=== PATIENT | female | born 1960 | race Caucasian/White ===

== ENCOUNTER 2017-07-05 04:27 | Emergency (ER) | payer MEDICARE, MEDICAID ==
[2017-07-05] MEDS ORDERED: Sodium Chloride 0.9% 10 ML Syringe FLUSH PRN (04:53)
[2017-07-05] MEDS ORDERED: Ondansetron 4 MG/2 ML SDV IVPUSH ONE (04:53)
[2017-07-05] MEDS ORDERED: HYDROmorphone 1 MG/ML Syringe IVPUSH ONE (04:54)
[2017-07-05] MEDS ORDERED: Ketorolac 30 MG/ML SDV IVPUSH ONE (04:55)
[2017-07-05] MEDS ORDERED: Sodium Chloride 0.9% 1,000 ML IV SCH (05:00)
--- NOTE | 2017-07-05 05:01 | EDM.PDOC ---
ED HPI GENERAL MEDICAL PROBLEM - General Chief Complaint: Abdominal Pain Stated Complaint: NAUSEA VOMITING SIDE PAIN Time Seen by Provider: 07/05/17 04:48 Source of Information: Reports: Patient History Limitations: Reports: No Limitations - History of Present Illness INITIAL COMMENTS - FREE TEXT/NARRATIVE: The patient presents with left flank and left abdominal pain. This started a few days ago. She has nausea and vomiting. She has no dysuria or hematuria. She denies fever, chills, cough, chest pain, shortness of breath and diarrhea. She never had a kidney stone before. She noticed her urine is dark. She still has her gallbladder and appendix but she did have gastric by pass surgery. The pain does come and goes but it is stronger lately. Onset: Gradual Duration: Day(s): (2) Location: Reports: Abdomen, Back (left flank) Quality: Reports: Sharp Severity: Severe Improves with: Reports: None Worsens with: Reports: None Associated Symptoms: Reports: Nausea/Vomiting. Denies: Chest Pain, Cough, Fever /Chills, Headaches, Shortness of Breath Left Middle Abdominal Pain Score (Numeric/FACES): 10 - Related Data Allergies Allergy/AdvReac Type Severity Reaction Status Date / Time prednisone Allergy Itching Verified 07/05/17 04:38 Home Meds: Home Meds ALPRAZolam [Xanax] 0.25 mg PO BID 06/28/16 [History] Cetirizine [ZyrTEC] 10 mg PO DAILY 06/28/16 [History] DULoxetine [Cymbalta] 120 mg PO DAILY 06/28/16 [History] Folic Acid 1 mg PO DAILY 06/28/16 [History] Multivitamin [Multivitamins] 1 cap PO DAILY 06/28/16 [History] QUEtiapine [SEROquel] 100 mg PO BEDTIME 06/28/16 [History] Rosuvastatin [Crestor] 5 mg PO DAILY 06/28/16 [History] Tamsulosin HCl [Flomax] 0.4 mg PO DAILY #10 cap.er.24h 07/05/17 [Rx] oxyCODONE HCl/Acetaminophen [Percocet 5-325 mg Tablet] 1 - 2 each PO Q6HR PRN # 20 tablet 07/05/17 [Rx] Past Medical History Cardiovascular History: Reports: High Cholesterol, Hypertension 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: , Other (See Below) Other OB/BYN History: ovarian cyst Psychiatric History: Reports: Anxiety, Depression - Past Surgical History HEENT Surgical History: Reports: Tonsillectomy GI Surgical History: Reports: Bariatric Procedure, Other (See Below) Female Surgical History: Reports: Section, Hysterectomy Musculoskeletal Surgical History: Reports: Arthroscopic Knee, Carpal Tunnel Social & Family History - Tobacco Use Smoking Status *Q: Current Every Day Smoker Years of Tobacco use: 30 Packs/Tins Daily: 0.5 Second Hand Smoke Exposure: Yes - Alcohol Use Days Per Week of Alcohol Use: 0 Number of Drinks Per Day: 0 Total Drinks Per Week: 0 - Recreational Drug Use Recreational Drug Use: No Drug Use in Last 12 Months: No ED ROS GENERAL - Review of Systems Review Of Systems: See Below Constitutional: Reports: No Symptoms HEENT: Reports: No Symptoms Respiratory: Reports: No Symptoms Cardiovascular: Reports: No Symptoms Endocrine: Reports: No Symptoms GI/Abdominal: Reports: Abdominal Pain, Nausea, Vomiting : Reports: Flank Pain Musculoskeletal: Reports: No Symptoms ED EXAM, GI/ABD - Physical Exam Exam: See Below Exam Limited By: No Limitations General Appearance: Alert, No Apparent Distress Ears: Normal External Exam Nose: Normal Inspection Head: Atraumatic, Normocephalic Neck: Normal Inspection Respiratory/Chest: No Respiratory Distress, Lungs Clear, Normal Breath Sounds Cardiovascular: Regular Rate, Rhythm, No Edema, No Murmur GI/Abdominal Exam: Soft, No Organomegaly, No Mass, Tender (Left abdomen) Back Exam: CVA Tenderness (L) (Mild) Extremities: Normal Inspection Neurological: Alert, Oriented, No Motor/Sensory Deficits Skin Exam: Warm, Dry Course - Vital Signs Last Recorded V/S: Last Vital Signs Temp 98.1 F 07/05/17 04:36 Pulse 97 07/05/17 04:36 Resp 16 07/05/17 04:36 BP 157/99 H 07/05/17 04:36 Pulse Ox 95 07/05/17 04:36 - Orders/Labs/Meds Orders: Active Orders 24 hr Category Date Time Status Peripheral IV Care [RC] . DIRECTED Care 07/05/17 04:54 Active Abdomen Ltd [US] Stat Exams 07/05/17 06:32 Taken Abdomen Pelvis wo Cont [CT] Stat Exams 07/05/17 04:53 Taken Sodium Chloride 0.9% [Normal Saline] 1,000 ml Med 07/05/17 05:00 Active IV ASDIRECTED Sodium Chloride 0.9% [Saline Flush] Med 07/05/17 04:53 Active 10 ml FLUSH ASDIRECTED PRN ED Antiemetic Medication Reflex [OM.PC] Stat Ot 07/05/17 04:53 Ordered Peripheral IV Insertion Adult [OM.PC] Stat Ot 07/05/17 04:53 Ordered Medication Orders Sodium Chloride (Normal Saline) 1,000 mls @ 125 mls/hr IV ASDIRECTED IQRA Last Admin: 07/05/17 05:08 Dose: 125 mls/hr Sodium Chloride (Saline Flush) 10 ml FLUSH ASDIRECTED PRN PRN Reason: Keep Vein Open Last Admin: 07/05/17 05:02 Dose: 10 ml Labs: Laboratory Tests 07/05/17 07/05/17 07/05/17 Range/Units 04:45 04:50 04:55 WBC 9.98 (3.98-10.04) K/mm3 RBC 4.94 (3.98-5.22) M/mm3 Hgb 14.8 (11.2-15.7) gm/L Hct 43.4 (34.1-44.9) % MCV 87.9 (79.4-94.8) fl MCH 30.0 (25.6-32.2) pg MCHC 34.1 (32.2-35.5) g/dl RDW Std Deviation 43.6 (36.4-46.3) fL Plt Count 255 (182-369) K/mm3 MPV 10.3 (9.4-12.3) fl Neut % (Auto) 79.4 H (34.0-71.1) % Lymph % (Auto) 12.9 L (19.3-51.7) % [place] % (Auto) 7.0 (4.7-12.5) % Eos % (Auto) 0.3 L (0.7-5.8) Baso % (Auto) 0.2 (0.1-1.2) % Neut # (Auto) 7.92 H (1.56-6.13) K/mm3 Lymph # (Auto) 1.29 (1.18-3.74) K/mm3 [place] # (Auto) 0.70 H (0.24-0.36) K/mm3 Eos # (Auto) 0.03 L (0.04-0.36) K/mm3 Baso # (Auto) 0.02 (0.01-0.08) K/mm3 Sodium 135 L (136-145) mEq/L Potassium 3.8 (3.5-5.1) mEq/L Chloride 99 (98-107) mEq/L Carbon Dioxide 28 (21-32) mEq/L Anion Gap 11.8 (5-15) BUN 9 (7-18) mg/dL Creatinine 0.8 (0.55-1.02) mg/dL Est Cr Clr Drug Dosing 62.84 mL/min Estimated GFR (MDRD) > 60 (>60) mL/min BUN/Creatinine Ratio 11.3 L (14-18) Glucose 148 H (74-106) mg/dL Calcium 8.8 (8.5-10.1) mg/dL Total Bilirubin 0.2 (0.2-1.0) mg/dL AST 18 (15-37) U/L ALT 21 (14-59) U/L Alkaline Phosphatase 82 (46-116) U/L Total Protein 7.3 (6.4-8.2) g/dl Albumin 4.1 (3.4-5.0) g/dl Globulin 3.2 gm/dL Albumin/Globulin Ratio 1.3 (1-2) Lipase 182 (73-393) U/L Urine Color Yellow (Yellow) Urine Appearance Slt cloudy H (Clear) Urine pH 7.0 (5.0-8.0) Ur Specific [place] 1.025 (1.005-1.030) Urine Protein Trace H (Negative) Urine Glucose (UA) Negative (Negative) Urine Ketones Negative (Negative) Urine Occult Blood 3+ H (Negative) Urine Nitrite Negative (Negative) Urine Bilirubin Negative (Negative) Urine Urobilinogen 0.2 (0.2-1.0) Ur Leukocyte Esterase Negative (Negative) Urine RBC >100 H (0-5) /hpf Urine WBC 0-5 (0-5) /hpf Ur Epithelial Cells 5-10 H (0-5) /hpf Urine Bacteria Few (FEW) /hpf Urine Mucus Not seen (FEW) /hpf Meds: Medications Generic Name Dose Route Start Last Admin Trade Name Freq PRN Reason Stop Dose Admin Sodium Chloride 1,000 mls @ 125 mls/hr 07/05/17 05:00 07/05/17 05:08 Normal Saline IV 125 mls/hr ASDIRECTED IQRA Administration Sodium Chloride 10 ml 07/05/17 04:53 07/05/17 05:02 Saline Flush FLUSH 10 ml ASDIRECTED PRN Administration Keep Vein Open Discontinued Medications Generic Name Dose Route Start Last Admin Trade Name Ally PRN Reason Stop Dose Admin Hydromorphone HCl 1 mg 07/05/17 04:54 07/05/17 05:06 Dilaudid IVPUSH 07/05/17 04:55 1 mg ONETIME ONE Administration Ketorolac Tromethamine 30 mg 07/05/17 04:55 07/05/17 05:04 Toradol IVPUSH 07/05/17 04:56 30 mg ONETIME ONE Administration Ondansetron HCl 4 mg 07/05/17 04:53 07/05/17 05:02 Zofran IVPUSH 07/05/17 04:54 4 mg ONETIME ONE Administration - Re-Assessments/Exams Free Text/Narrative Re-Assessment/Exam: 07/05/17 05:00 I ordered an IV NS at 125mL.hr, dilaudid 1mg IV, toradol 30mg IV, zofran 4mg IV , labs, UA and a CT of her abdomen and pelvis to look for a kidney stone. 07/05/17 06:29 Her CBC looks good. Her Na was low at 135. Her glucose was 148. Her UA showed blood. Her CT shows status post gastric bypass. Hydronephrosis of the left kidney secondary to a 1cm stone in the proximal left ureter, 2cm nonobstructing stone lower pole left kidney, cholilithiasis, 5.5cm mass in the right lobe of the liver posteriorly. Correlation with ultrasound is suggested to document that this is a hemangioma. 07/05/17 07:14 I have ordered an US of her liver. 07/05/17 07:23 I called [facility] and I was able to get the patient in to see Dr Garcia on SundayJuly 10 at 11am [place] time. 07/05/17 08:30 The US 5.6 abnormality within the posterior right lobe of the liver correlating to area of diminished density on recent CT exam. This does not appear as a typical hemangioma. Nuclear medicine RBC SPECT study is recommended. Small echogenic abnormality within the left lobe of the liver is felt compatible with small hemangioma. Gallstones or possibly sludge ball within gallbladder. No gallbladder wall thickening or biliary duct dilatation. I will order the RBC SPECT scan and I will call Toña Theodore her provider to let her know what is going on. I will continue the plan for the urology appointment. Departure - Departure Time of Disposition: 08:40 Disposition: Home, Self-Care 01 Condition: Good Clinical Impression: Kidney stone on left side, Ureteral colic, Ureteral calculus, left, Liver lesion - Discharge Information Prescriptions: oxyCODONE HCl/Acetaminophen [Percocet 5-325 mg Tablet] 1 - 2 each PO Q6HR PRN # 20 tablet PRN Reason: Pain Tamsulosin HCl [Flomax] 0.4 mg PO DAILY #10 cap.er.24h Referrals: Toña Theodore NP [Primary Care Provider] - Mckay Garcia MD [Physician] - Forms: ED Department Discharge Additional Instructions: Take the percocet 1 to 2 pills every 6 hours as needed for pain. Take the flomax daily. Follow up with Dr Garcia on SundayJuly 10 at 11am [place] time. Please check in at 10:30 am to fill out the paper work. Please return if you are worse. There was a lesion seen on your CT scan. I have ordered an additional test to figure out what this is. The test is ordered for Sunday the 13 of July at 10am here in the hospital. 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 - My Orders Last 24 Hours: My Active Orders 07/05/17 04:53 Abdomen Pelvis wo Cont [CT] Stat Sodium Chloride 0.9% [Saline Flush] 10 ml FLUSH ASDIRECTED PRN ED Antiemetic Medication Reflex [OM.PC] Stat Peripheral IV Insertion Adult [OM.PC] Stat 07/05/17 04:54 Peripheral IV Care [RC] . DIRECTED 07/05/17 05:00 Sodium Chloride 0.9% [Normal Saline] 1,000 ml IV ASDIRECTED 07/05/17 06:32 Abdomen Ltd [US] Stat - Assessment/Plan Last 24 Hours: My Active Orders 07/05/17 04:53 Abdomen Pelvis wo Cont [CT] Stat Sodium Chloride 0.9% [Saline Flush] 10 ml FLUSH ASDIRECTED PRN ED Antiemetic Medication Reflex [OM.PC] Stat Peripheral IV Insertion Adult [OM.PC] Stat 07/05/17 04:54 Peripheral IV Care [RC] . DIRECTED 07/05/17 05:00 Sodium Chloride 0.9% [Normal Saline] 1,000 ml IV ASDIRECTED 07/05/17 06:32 Abdomen Ltd [US] Stat
--- NOTE | 2017-07-05 09:28 | US ---
Limited abdominal ultrasound: Multiple real-time images of the upper right abdomen were obtained. Comparison: Previous CT exam performed earlier on the same day (05:29 AM). Slight heterogeneous area is seen within the right posterior liver which is felt to correlate to the area of diminished density on CT exam. This does not have the appearance of a typical hemangioma and measures about 5.5 cm. Small hyperechoic area is noted within the left lobe of the liver measuring 1.4 cm in size possibly due to small hemangioma. No additional abnormality is appreciated within the liver. Right kidney shows no hydronephrosis. Small hyperechoic area is noted within the mid right kidney most likely vascular in etiology. Pancreas appears within normal limits. Single mobile gallstone or possibly sludge ball is seen within the gallbladder measuring 6 mm. No gallbladder wall thickening or biliary duct dilatation is seen. Impression: 1. 5.6 cm abnormality within the posterior right lobe of the liver correlating to area of diminished density on recent CT exam. This does not appear as a typical hemangioma. Nuclear medicine RBC SPECT study is recommended to further evaluate. 2. Small echogenic abnormality within the left lobe of the liver is felt compatible with small hemangioma. 3. Gallstone or possibly sludge ball within the gallbladder. No gallbladder wall thickening or biliary duct dilatation. 4. Minimal finding within the right kidney felt to be incidental. Diagnostic code #9
[2017-07-05 09:32] VITALS: BP 130/68
--- NOTE | 2017-07-06 08:17 | CT ---
CT abdomen and pelvis Technique: Multiple axial sections were obtained from above the dome of the diaphragm inferiorly through the pubic symphysis. Intravenous and oral contrast not utilized. Study has been performed as a ureteral stone protocol. Findings: 1.2 cm nonobstructing calculus noted within the left kidney. Left kidney appears swollen due to an obstructing stone located slightly past the UPJ within the proximal left ureter measuring approximately 9 mm. No other abnormal calcifications are seen along the course of the ureters. Visualized lung bases are clear. Liver shows a large low density lesion posteriorly within the right lobe measuring approximate 5.4 cm in size. No additional abnormality identified within the liver. Spleen appears normal. Adrenal glands show no nodule. Previous stomach surgery is present. Gallbladder shows a small calcified gallstone. Aorta shows atherosclerotic calcification without aneurysmal dilatation. No retroperitoneal adenopathy or mesenteric abnormalities are noted. No pelvic mass or adenopathy is identified. Bone window settings show scattered degenerative change within the spine. Disc protrusion seen into the superior endplate of L1. Impression: 1. Obstructing calculus within the proximal left ureter slightly past the UPJ measuring about 9 mm. This causes swelling of the left kidney. Left kidney also shows a nonobstructing stone. 2. 5.4 cm low-density mass within the right lobe of the liver. Please see ultrasound report for further recommendations. 3. Other incidental findings as described above. Diagnostic code #3 Agree with preliminary report issued by [employer] ([employer] preliminary report dictated on 07/05/17, 6:45 AM Central Time)
== END 2017-07-05 09:32 | disposition home or self-care (01) ==
LOC: JD.ED 04:27
DX: N20.2 Calculus of kidney with calculus of ureter (principal); K76.9 Liver disease, unspecified; F41.9 Anxiety disorder, unspecified; F32.9 Major depressive disorder, single episode, unspecified; I10 Essential (primary) hypertension; E78.00 Pure hypercholesterolemia, unspecified; F17.210 Nicotine dependence, cigarettes, uncomplicated; Z79.899 Other long term (current) drug therapy; Z98.84 Bariatric surgery status; Z98.890 Other specified postprocedural states; Z88.8 Allergy status to other drugs, medicaments and biological substances; Z90.710 Acquired absence of both cervix and uterus
CPT/HCPCS: 36415; 74176; 76705; 80053; 81001; 83690; 85025; 96361; 96374; 96375; 99284; J1170; J1885; J2405; J7040; J7050

== ENCOUNTER 2017-09-28 06:56 | Day surgery (SDC) | payer MEDICARE, MEDICAID ==
[2017-09-28] MEDS ORDERED: Sodium Chloride 0.9% 10 ML Syringe FLUSH PRN (07:00)
[2017-09-28] MEDS ORDERED: Lidocaine 1%/Sod Bicarbonate in NS 8.4% 1 ML Syringe IV PRN (07:00)
[2017-09-28] MEDS ORDERED: Rocuronium 50 MG/5 ML Vial ONE (07:13)
[2017-09-28] MEDS ORDERED: Dexamethasone 4 MG/ML 5 ML MDV ONE (07:13)
[2017-09-28] MEDS ORDERED: Ondansetron 4 MG/2 ML SDV ONE (07:13)
[2017-09-28] MEDS ORDERED: ceFAZolin 1 GM Vial ONE (07:13)
[2017-09-28] MEDS ORDERED: Propofol 200 MG/20 ML SDV ONE (07:14)
[2017-09-28] MEDS ORDERED: fentaNYL 250 MCG/5 ML SDV ONE (07:14)
[2017-09-28] MEDS ORDERED: Midazolam 1 MG/ML 2 ML SDV ONE (07:14)
[2017-09-28] MEDS ORDERED: Bupivacaine 0.5%/EPINEPHrine 1:200,000 50 ML MDV ONE (07:16)
[2017-09-28] MEDS ORDERED: Lidocaine 1% with EPINEPHrine 1:100,000 20 ML MDV ONE (07:16)
[2017-09-28] MEDS: Lactated Ringers 1,000 ML IV SCH ×2 (07:20→11:35)
--- NOTE | 2017-09-28 07:23 | PCM.PREANE ---
Preanesthetic Assessment - Anesthesia/Transfusion/Family Hx Anesthesia History: Prior Anesthesia Without Reaction Family History of Anesthesia Reaction: No Transfusion History: No Prior Transfusion(s) - Review of Systems General: No Symptoms Pulmonary: Other (smoker 1-2 packs per day, denies sob or wheezing) Cardiovascular: No Symptoms (HTN, EKG is sinus rhythm with PACs), Other ( increased lipids) Gastrointestinal: Other (GERD) Other: Reports: Diabetes (type 2), Liver Problems (liver hemagioma), Depression , Anxiety - Physical Assessment NPO Status Date: 09/27/17 NPO Status Time: 22:00 Pulse: 100 O2 Sat by Pulse Oximetry: 92 Respiratory Rate: 16 Blood Pressure: 115/76 Temperature: 37.1 C Weight: 78 kg ASA Class: 3 Mental Status: Alert & Oriented x3 Airway Class: Mallampati = 2 Dentition: Reports: Normal Dentition Thyro-Mental Finger Breadths: 3 Mouth Opening Finger Breadths: 3 ROM/Head Extension: Full Lungs: Clear to Auscultation, Normal Respiratory Effort Cardiovascular: Regular Rate, Regular Rhythm - Allergies Allergies/Adverse Reactions: Allergies Allergy/AdvReac Type Severity Reaction Status Date / Time mold Allergy Cannot Verified 09/26/17 16:05 Remember prednisone Allergy Itching Verified 09/26/17 16:05 - Blood Blood Available: No Product(s) Available: None - Anesthesia Plan Pre-Op Medication Ordered: None - Acknowledgements Anesthesia Type Planned: General Anesthesia Pt an Appropriate Candidate for the Planned Anesthesia: Yes Alternatives and Risks of Anesthesia Discussed w Pt/Guardian: Yes Pt/Guardian Understands and Agrees with Anesthesia Plan: Yes PreAnesthesia Questionnaire Cardiovascular History: Reports: High Cholesterol, Hypertension Respiratory History: Reports: Other (See Below) Other Respiratory History: acute bronchitits Gastrointestinal History: Reports: Other (See Below) Other Gastrointestinal History: RUQ pain, heartburn, liver hemangioma Genitourinary History: Reports: Renal Calculus 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: , 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 (See Below) Other OB/BYN History: ovarian cyst Musculoskeletal History: Reports: Back Pain, Chronic, Osteoarthritis, Other ( See Below) Other Musculoskeletal History: left knee osteoarthritis, compression fracture, hip pain Neurological History: Reports: None Psychiatric History: Reports: Anxiety, Depression Endocrine/Metabolic History: Reports: Vitamin D Deficiency Hematologic History: Reports: None Immunologic History: Reports: None Oncologic (Cancer) History: Reports: None Dermatologic History: Reports: Eczema - Past Surgical History Head Surgeries/Procedures: Reports: None HEENT Surgical History: Reports: Naso-Sinus Surgery, Tonsillectomy Cardiovascular Surgical History: Reports: None Respiratory Surgical History: Reports: None GI Surgical History: Reports: Bariatric Procedure, Other (See Below) Other GI Surgeries/Procedures: gastric bypass Female Surgical History: Reports: Section, Hysterectomy Male Surgical History: Reports: None Endocrine Surgical History: Reports: None Neurological Surgical History: Reports: None Musculoskeletal Surgical History: Reports: Arthroscopic Knee, Carpal Tunnel, Other (See Below) Other Musculoskeletal Surgeries/Procedures:: ganglion cyst removal from foot, knee surgery Oncologic Surgical History: Reports: None - SUBSTANCE USE Smoking Status *Q: Current Every Day Smoker Tobacco Use Within Last Twelve Months: Cigarettes Other Tobacco Use Within Last Twelve Months: yes Second Hand Smoke Exposure: Yes Days Per Week of Alcohol Use: 0 Number of Drinks Per Day: 0 Total Drinks Per Week: 0 Recreational Drug Use History: No - HOME MEDS Home Medications: Home Meds ALPRAZolam [Xanax] 0.25 mg PO BID PRN 06/28/16 [History] Cetirizine [ZyrTEC] 10 mg PO DAILY 06/28/16 [History] DULoxetine [Cymbalta] 120 mg PO BEDTIME 06/28/16 [History] Folic Acid 1 mg PO DAILY 06/28/16 [History] Multivitamin [Multivitamins] 2 cap PO DAILY 06/28/16 [History] QUEtiapine [SEROquel] 100 mg PO BEDTIME 06/28/16 [History] Rosuvastatin [Crestor] 5 mg PO DAILY 06/28/16 [History] Albuterol [Ventolin HFA] 1 puff INH Q4H PRN 09/26/17 [History] Biotin 1,000 mcg PO DAILY 09/26/17 [History] Calcium Carbonate/Vitamin D3 [Calcium 600 + Vit D 200] 1 tab PO BID 09/26/17 [ History] Cyanocobalamin (Vitamin B-12) [Vitamin B-12] 2,000 mcg PO DAILY 09/26/17 [ History] Ferrous Sulfate [Iron] 325 mg PO DAILY 09/26/17 [History] Fluticasone Propionate [Flonase Allergy Relief] 1 spray NASBOTH DAILY 09/26/17 [ History] Olopatadine HCl [Pazeo] 1 drop EYEBOTH DAILY 09/26/17 [History] Pantoprazole Sodium [Protonix] 40 mg PO DAILY 09/26/17 [History] Pyridoxine HCl [Vitamin B-6] 100 mg PO DAILY 09/26/17 [History] cycloSPORINE [Restasis] 1 drop EYEBOTH BID 09/26/17 [History] - CURRENT (IN HOUSE) MEDS Current Meds: Current Medications Lactated Ringer's (Ringers, Lactated) 1,000 mls @ 125 mls/hr IV ASDIRECTED IQRA Stop: 09/28/17 23:00 Lidocaine/Sodium Bicarbonate (Buffered Lidocaine 1% In Ns 8.4%) 0.25 ml IV ONETIME PRN PRN Reason: Prior to IV Start Stop: 09/28/17 18:00 Sodium Chloride (Saline Flush) 10 ml FLUSH ASDIRECTED PRN PRN Reason: Keep Vein Open Stop: 09/28/17 18:00 Discontinued Medications Cefazolin Sodium (Ancef) Confirm Administered Dose 2 gm .ROUTE .STK-MED ONE Stop: 09/28/17 07:14 Dexamethasone (Dexamethasone) Confirm Administered Dose 20 mg .ROUTE .STK-MED ONE Stop: 09/28/17 07:14 Fentanyl (Sublimaze) Confirm Administered Dose 250 mcg .ROUTE .STK-MED ONE Stop: 09/28/17 07:15 Midazolam HCl (Versed 1 Mg/Ml) Confirm Administered Dose 2 mg .ROUTE .STK-MED ONE Stop: 09/28/17 07:15 Ondansetron HCl (Zofran) Confirm Administered Dose 4 mg .ROUTE .STK-MED ONE Stop: 09/28/17 07:14 Propofol (Diprivan 20 Ml) Confirm Administered Dose 200 mg .ROUTE .STK-MED ONE Stop: 09/28/17 07:15 Rocuronium [place] (Zemuron) Confirm Administered Dose 50 mg .ROUTE .STK-MED ONE Stop: 09/28/17 07:14
[2017-09-28] MEDS ORDERED: Albuterol 0.083% 2.5 MG/3 ML Neb Soln NEB ONE ×2 (07:37→09:54)
[2017-09-28] MEDS ORDERED: Lactated Ringers 1,000 ML ONE (09:10)
[2017-09-28] MEDS ORDERED: Ketorolac 30 MG/ML SDV ONE (09:10)
[2017-09-28] MEDS ORDERED: fentaNYL 100 MCG/2 ML SDV ONE (09:39)
--- NOTE | 2017-09-28 09:44 | PCM.OPNOTE ---
- General Post-Op/Procedure Note Date of Surgery/Procedure: 09/28/17 Operative Procedure(s): Laparoscopic cholecystectomy Findings: One small gallstone and chronic inflammation of the gallbladder Pre Op Diagnosis: Biliary colic secondary to cholelithiasis Post-Op Diagnosis: Chronic cholecystitis secondary to cholelithiasis Anesthesia Technique: General ET Tube, Local Primary Surgeon: Mckay Colon Pathology: Gallbladder with gallstones EBL in mLs: 2 Complications: None Condition: Good Free Text/Narrative:: After adequate general endotracheal tube anesthesia was obtained the patient's abdomen was prepped and draped sterilely in the usual manner for a laparoscopic cholecystectomy. A midline incision was made with a 15 blade after local analgesia was given just above the umbilicus. This incision was deepened with scissors to the midline. A 15 blade was used to open the linea alba followed by insertion of a 12 mm camera port. CO2 pneumoperitoneum was obtained. Exploration revealed no significant adhesions and I didn't visualize a hemangioma. 3--5 mm working ports were placed along the right costal margin. I grasped the dome of the gallbladder and retracted it and the liver in a cephalad direction. Adair's pouch was grasped and then I dissected out the cystic duct and cystic artery. These structures were clipped in continuity with 5 mm clips and divided with scissors. I took the gallbladder down from its bed in a retrograde fashion with the hook cautery. The specimen was placed in a bag and removed through the umbilicus. The gallbladder bed was hemostatic. There was no bile leakage or bowel injury seen. I decannulated the abdomen under direct vision with no bleeding from the port sites. The supraumbilical incision was closed with a [id number] Vicryl. Subcutaneous tissues and skin were closed with Vicryl as well. Steri-Strips and gauze were used for the dressing. Photographs were taken for the patient and for the medical record. There were no procedural complications.
[2017-09-28] MEDS ORDERED: HYDROmorphone 0.5 MG/0.5 ML Syringe IVPUSH PRN (09:54)
[2017-09-28] MEDS ORDERED: Ondansetron 4 MG/2 ML SDV IVPUSH PRN (09:54)
--- NOTE | 2017-09-28 09:54 | PCM.POSTAN ---
POST ANESTHESIA ASSESSMENT - MENTAL STATUS Mental Status: Alert, Oriented - VITAL SIGNS Pulse Rate: 110 SaO2: 96 Resp Rate: 16 Blood Pressure: 116/64 Temperature: 36.9 C - RESPIRATORY Respiratory Status: Respiratory Rate WNL, Airway Patent, O2 Saturation Stable, Supplemental Oxygen - CARDIOVASCULAR CV Status: Pulse Rate WNL, Blood Pressure Stable - GASTROINTESTINAL GI Status: No Symptoms - PAIN Pain Score: 0 - POST OP HYDRATION Hydration Status: Adequate & Stable
[2017-09-28] MEDS: fentaNYL 100 MCG/2 ML SDV IVPUSH PRN ×2 (10:15→10:40)
[2017-09-28] MEDS ORDERED: Acetaminophen/Codeine 300-30 MG Tab PO ONE (11:33)
[2017-09-28 12:53] VITALS: BP 93/62
== END 2017-09-28 12:27 | disposition home or self-care (01) ==
LOC: JD.SDS 06:56
PROVIDERS: ATTEND Surgery
DX: K81.1 Chronic cholecystitis (principal); F32.9 Major depressive disorder, single episode, unspecified; E78.5 Hyperlipidemia, unspecified; E11.9 Type 2 diabetes mellitus without complications; E55.9 Vitamin D deficiency, unspecified; F41.9 Anxiety disorder, unspecified; Z88.8 Allergy status to other drugs, medicaments and biological substances; Z79.899 Other long term (current) drug therapy; Z98.84 Bariatric surgery status; Z98.890 Other specified postprocedural states; F17.210 Nicotine dependence, cigarettes, uncomplicated
CPT/HCPCS: 47562; 94640; A9270; J0690; J1100; J1885; J2250; J2405; J3010; J7120; 00790; 88304; J2704

== ENCOUNTER 2018-02-13 07:40 | Day surgery (SDC) | payer MEDICARE, MEDICAID ==
[~2018-02-13 07:40] MED LIST: Lactated Ringers 1,000 ML IV SCH; Lidocaine 1% 0 ML ONE; Lidocaine 1%/Sod Bicarbonate in NS 8.4% 1 ML Syringe IDERM PRN; Midazolam 1 MG/ML 2 ML SDV ONE; Propofol 200 MG/20 ML SDV ONE; Sodium Chloride 0.9% 10 ML Syringe FLUSH PRN; fentaNYL 100 MCG/2 ML SDV ONE
--- NOTE | 2018-02-13 08:02 | PCM.PREANE ---
Preanesthetic Assessment - Anesthesia/Transfusion/Family Hx Anesthesia History: Prior Anesthesia Without Reaction Family History of Anesthesia Reaction: No Transfusion History: No Prior Transfusion(s) - Review of Systems General: No Symptoms Pulmonary: Cough, Sputum Cardiovascular: No Symptoms Gastrointestinal: No Symptoms Neurological: No Symptoms Other: Reports: None - Physical Assessment NPO Status Date: 02/12/18 NPO Status Time: 00:00 Pulse: 97 O2 Sat by Pulse Oximetry: 92 Respiratory Rate: 16 Blood Pressure: 130/86 Temperature: 36.2 C Height: 1.57 m Weight: 79.152 kg ASA Class: 2 Mental Status: Alert & Oriented x3 Dentition: Reports: Broken Tooth/Teeth (front top), Caries Thyro-Mental Finger Breadths: 3 Mouth Opening Finger Breadths: 2 ROM/Head Extension: Full Lungs: Clear to Auscultation, Normal Respiratory Effort Cardiovascular: Regular Rate, Regular Rhythm, No Murmurs - Allergies Allergies/Adverse Reactions: Allergies Allergy/AdvReac Type Severity Reaction Status Date / Time hydroxychloroquine Allergy Cannot Verified 02/13/18 08:19 [From Plaquenil] Remember mold Allergy Cannot Verified 02/13/18 08:19 Remember prednisone Allergy Itching Verified 02/13/18 08:19 - Blood Blood Available: No Product(s) Available: None - Anesthesia Plan Pre-Op Medication Ordered: None - Acknowledgements Anesthesia Type Planned: MAC Pt an Appropriate Candidate for the Planned Anesthesia: Yes Alternatives and Risks of Anesthesia Discussed w Pt/Guardian: Yes Pt/Guardian Understands and Agrees with Anesthesia Plan: Yes PreAnesthesia Questionnaire HEENT History: Reports: Sinusitis Cardiovascular History: Reports: High Cholesterol, Hypertension Respiratory History: Reports: Asthma, Other (See Below) Other Respiratory History: acute bronchitits Gastrointestinal History: Reports: Other (See Below) Other Gastrointestinal History: RUQ pain, heartburn, liver hemangioma Genitourinary History: Reports: Renal Calculus [employer] History: Reports: , Other (See Below) Other OB/BYN History: ovarian cyst Musculoskeletal History: Reports: Back Pain, Chronic, Osteoarthritis, Other ( See Below) Other Musculoskeletal History: left knee osteoarthritis, compression fracture, hip pain Neurological History: Reports: None, Other (See Below) Other Neuro History: back pain, compression fracture, right foot ganglion cyst, right knee paint Psychiatric History: Reports: Anxiety, Depression Endocrine/Metabolic History: Reports: Vitamin D Deficiency Hematologic History: Reports: None Immunologic History: Reports: None Oncologic (Cancer) History: Reports: None Dermatologic History: Reports: Eczema - Past Surgical History Head Surgeries/Procedures: Reports: None HEENT Surgical History: Reports: Naso-Sinus Surgery, Tonsillectomy Cardiovascular Surgical History: Reports: None Respiratory Surgical History: Reports: None GI Surgical History: Reports: Bariatric Procedure, Other (See Below) Other GI Surgeries/Procedures: gastric bypass Female Surgical History: Reports: Section, Hysterectomy Male Surgical History: Reports: None Endocrine Surgical History: Reports: None Neurological Surgical History: Reports: None Musculoskeletal Surgical History: Reports: Arthroscopic Knee, Carpal Tunnel, Other (See Below) Other Musculoskeletal Surgeries/Procedures:: ganglion cyst removal from foot, knee surgery Oncologic Surgical History: Reports: None Dermatological Surgical History: Reports: None - SUBSTANCE USE Smoking Status *Q: Current Every Day Smoker Tobacco Use Within Last Twelve Months: Cigarettes Other Tobacco Use Within Last Twelve Months: yes Second Hand Smoke Exposure: Yes Days Per Week of Alcohol Use: 0 Number of Drinks Per Day: 0 Total Drinks Per Week: 0 Recreational Drug Use History: No - HOME MEDS Home Medications: Home Meds ALPRAZolam [Xanax] 0.25 mg PO BID PRN 06/28/16 [History] Cetirizine [ZyrTEC] 10 mg PO DAILY 06/28/16 [History] DULoxetine [Cymbalta] 120 mg PO BEDTIME 06/28/16 [History] Folic Acid 1 mg PO DAILY 06/28/16 [History] Multivitamin [Multivitamins] 2 cap PO DAILY 06/28/16 [History] QUEtiapine [SEROquel] 100 mg PO BEDTIME 06/28/16 [History] Albuterol [Ventolin HFA] 1 puff INH Q4H PRN 09/26/17 [History] Calcium Carbonate/Vitamin D3 [Calcium 600 + Vit D 200] 1 tab PO BID 09/26/17 [ History] Cyanocobalamin (Vitamin B-12) [Vitamin B-12] 2,000 mcg PO DAILY 09/26/17 [ History] Ferrous Sulfate [Iron] 325 mg PO DAILY 09/26/17 [History] Fluticasone Propionate [Flonase Allergy Relief] 1 spray NASBOTH DAILY 11/08/17 [ History] Olopatadine HCl [Pazeo] 1 drop EYEBOTH DAILY 09/26/17 [History] Pantoprazole Sodium [Protonix] 40 mg PO DAILY 09/26/17 [History] Pyridoxine HCl [Vitamin B-6] 100 mg PO DAILY 09/26/17 [History] cycloSPORINE [Restasis] 1 drop EYEBOTH BID 09/26/17 [History] Cholecalciferol (Vitamin D3) [Vitamin D3] 50,000 units PO DAILY 02/12/18 [ History] atorvaSTATin Calcium [Atorvastatin Calcium] 10 mg PO DAILY 02/12/18 [History] - CURRENT (IN HOUSE) MEDS Current Meds: Current Medications Lactated Ringer's (Ringers, Lactated) 1,000 mls @ 125 mls/hr IV ASDIRECTED [facility] Lidocaine/Sodium Bicarbonate (Buffered Lidocaine 1% In Ns 8.4%) 0.25 ml IDERM ONETIME PRN PRN Reason: Prior to IV Start Sodium Chloride (Saline Flush) 10 ml FLUSH ASDIRECTED PRN PRN Reason: Keep Vein Open Discontinued Medications Fentanyl (Sublimaze) Confirm Administered Dose 100 mcg .ROUTE .STK-MED ONE Stop: 01/16/18 07:42 Lactated Ringer's (Ringers, Lactated) 1,000 mls @ 125 mls/hr IV ASDIRECTED [facility]RA Stop: 01/16/18 23:00 Lidocaine HCl (Xylocaine-Mpf 1%) Confirm Administered Dose 4 mls @ as directed .ROUTE .STK-MED ONE Stop: 01/16/18 07:42 Lidocaine/Sodium Bicarbonate (Buffered Lidocaine 1% In Ns 8.4%) 0.25 ml IDERM ONETIME PRN PRN Reason: Prior to IV Start Stop: 01/16/18 18:00 Midazolam HCl (Versed 1 Mg/Ml) Confirm Administered Dose 2 mg .ROUTE .STK-MED ONE Stop: 01/16/18 10:03 Propofol (Diprivan 20 Ml) Confirm Administered Dose 200 mg .ROUTE .STK-MED ONE Stop: 01/16/18 07:42 Sodium Chloride (Saline Flush) 10 ml FLUSH ASDIRECTED PRN PRN Reason: Keep Vein Open Stop: 01/16/18 18:00
[2018-02-13] MEDS ORDERED: fentaNYL 100 MCG/2 ML SDV ONE (08:18)
[2018-02-13] MEDS ORDERED: Midazolam 1 MG/ML 2 ML SDV ONE (08:18)
[2018-02-13] MEDS ORDERED: Propofol 200 MG/20 ML SDV ONE (08:18)
--- NOTE | 2018-02-13 09:18 | PCM.OPNOTE ---
- General Post-Op/Procedure Note Date of Surgery/Procedure: 02/13/18 Operative Procedure(s): Colonoscopy with sigmoid polypectomy 1 and rectal polypectomy 3 Findings: 1. External tags with slightly prolapsing internal hemorrhoids 2. A few small sigmoid diverticulae uncomplicated 3. Diminutive rectal polyps 3 all less than 5 mm in size 4. Diminutive sigmoid polyp 1 less than 5 mm in size Pre Op Diagnosis: Intermittent bright red bleeding per rectum with a known history of hemorrhoids Post-Op Diagnosis: 1. External perianal tags. 2. Slightly prolapsing internal hemorrhoids uncomplicated. 3. Small sigmoid diverticulosis. 4. Multiple rectal polyps and one sigmoid polyp Anesthesia Technique: MAC, Moderate Sedation Primary Surgeon: Mckay Colon Pathology: Multiple polyps as above EBL in mLs: 0 Complications: None Condition: Good Free Text/Narrative:: After adequate IV sedation and analgesia was obtained with monitoring the patient was placed on her left side. Perianal inspection and digital rectal examination were performed next and revealled the external tags and slightly prolapsed but uncomplicated internal hemorrhoids. A lubricated colonoscope was inserted into the rectum then advanced to the cecum with abdominal pressure. The bowel preparation was fair. Grossly the cecum right colon transverse and descending colons were endoscopically normal with no obvious mass lesions or inflammatory changes seen. The sigmoid had a few very small diverticuli. In the distal sigmoid there was a diminutive polyp which was removed with cold forceps. The specimen was retrieved. The rectum proximally had 3 smaller polyps as well as mentioned above. I removed them with cold forceps. In the retroflexed view of the rectum there were no mass lesions and the hemorrhoids were visualized. Powerhouse Attendant photographs were taken for the patient and for the medical record. Air was removed as I finished the procedure which she tolerated well.
--- NOTE | 2018-02-13 09:24 | PCM48HPAN ---
Post Anesthesia Note - EVALUATION WITHIN 48HRS OF ANESTHETIC Vital Signs in Normal Range: Yes Patient Participated in Evaluation: Yes Respiratory Function Stable: Yes Airway Patent: Yes Cardiovascular Function Stable: Yes Hydration Status Stable: Yes Pain Control Satisfactory: Yes Nausea and Vomiting Control Satisfactory: Yes Mental Status Recovered: Yes Pulse Rate: 97 SaO2: 95 Resp Rate: 16 Temperature: 36.2 C Blood Pressure: 130/86 - COMMENTS/OBSERVATIONS Free Text/Narrative:: NO ANESTHESIA COMPLICATIONS NOTED
[2018-02-13 10:32] VITALS: BP 106/72
== END 2018-02-13 10:10 | disposition home or self-care (01) ==
LOC: JD.SDS 07:40
PROVIDERS: ATTEND Surgery
DX: D12.5 Benign neoplasm of sigmoid colon (principal); K62.1 Rectal polyp; K64.2 Third degree hemorrhoids; K57.30 Diverticulosis of large intestine without perforation or abscess without bleeding; K64.4 Residual hemorrhoidal skin tags; F41.9 Anxiety disorder, unspecified; E78.5 Hyperlipidemia, unspecified; F32.9 Major depressive disorder, single episode, unspecified; E55.9 Vitamin D deficiency, unspecified; Z88.8 Allergy status to other drugs, medicaments and biological substances; Z79.899 Other long term (current) drug therapy; Z90.710 Acquired absence of both cervix and uterus; Z98.890 Other specified postprocedural states
CPT/HCPCS: 45380; 88305; J2250; J3010; J7120; 00811; J2001; J2704

== ENCOUNTER 2018-03-20 09:14 | Day surgery (SDC) | payer MEDICARE, MEDICAID ==
[~2018-03-20 09:14] MED LIST changes: -Lidocaine 1% 0 ML ONE; +Lidocaine 1% 4 ML ONE
[2018-03-20] MEDS ORDERED: Lidocaine 1% with EPINEPHrine 1:100,000 20 ML MDV ONE (09:22)
[2018-03-20] MEDS ORDERED: Bupivacaine 0.5%/EPINEPHrine 1:200,000 50 ML MDV ONE (09:22)
[2018-03-20] MEDS ORDERED: Albuterol 0.083% 2.5 MG/3 ML Neb Soln NEB ONE (09:48)
--- NOTE | 2018-03-20 09:48 | PCM.PREANE ---
Preanesthetic Assessment - Procedure Proposed Procedure: procedure for prolapes hemorrhoids - Anesthesia/Transfusion/Family Hx Anesthesia History: Prior Anesthesia Without Reaction Type of Anesthesia Reaction: Other (see below) (some nausea a long time ago) Family History of Anesthesia Reaction: No Transfusion History: No Prior Transfusion(s) - Review of Systems General: No Symptoms Pulmonary: Cough (smokers) Cardiovascular: No Symptoms Gastrointestinal: No Symptoms Neurological: No Symptoms Other: Reports: Easy Bruising, Diabetes (used to be but not now), Liver Problems (hematoma on liver), Sinus Problem, Depression, Anxiety - Physical Assessment NPO Status Date: 03/19/18 NPO Status Time: 23:00 Pulse: 91 O2 Sat by Pulse Oximetry: 94 Respiratory Rate: 18 Blood Pressure: 105/75 Temperature: 97.7 F Height: 5 ft 2 in Weight: 78.7 kg ASA Class: 2 Mental Status: Alert & Oriented x3 Airway Class: Mallampati = 1 Dentition: Reports: Normal Dentition Thyro-Mental Finger Breadths: 3 Mouth Opening Finger Breadths: 3 ROM/Head Extension: Full Lungs: Clear to Auscultation, Normal Respiratory Effort, Wheezing (prior to cough) Cardiovascular: Regular Rate, Regular Rhythm - Allergies Allergies/Adverse Reactions: Allergies Allergy/AdvReac Type Severity Reaction Status Date / Time hydroxychloroquine Allergy Cannot Verified 03/19/18 12:28 [From Plaquenil] Remember mold Allergy Cannot Verified 03/19/18 12:28 Remember prednisone Allergy Itching Verified 03/19/18 12:28 - Blood Blood Available: No - Acknowledgements Anesthesia Type Planned: MAC Pt an Appropriate Candidate for the Planned Anesthesia: Yes Alternatives and Risks of Anesthesia Discussed w Pt/Guardian: Yes Pt/Guardian Understands and Agrees with Anesthesia Plan: Yes PreAnesthesia Questionnaire HEENT History: Reports: Sinusitis Cardiovascular History: Reports: High Cholesterol, Hypertension Respiratory History: Reports: Asthma, Other (See Below) Other Respiratory History: acute bronchitits Gastrointestinal History: Reports: GERD, Other (See Below) Other Gastrointestinal History: RUQ pain, heartburn, liver hemangioma Genitourinary History: Reports: None, Renal Calculus COURT CRIER History: Reports: , Other (See Below) Other OB/BYN History: ovarian cyst Musculoskeletal History: Reports: Back Pain, Chronic, Osteoarthritis, Other ( See Below) Other Musculoskeletal History: left knee osteoarthritis, compression fracture, hip pain Neurological History: Reports: None, Other (See Below) Other Neuro History: back pain, compression fracture, right foot ganglion cyst, right knee paint Psychiatric History: Reports: Anxiety, Depression Endocrine/Metabolic History: Reports: Vitamin D Deficiency Hematologic History: Reports: None Immunologic History: Reports: None Oncologic (Cancer) History: Reports: None Dermatologic History: Reports: Eczema - Past Surgical History Head Surgeries/Procedures: Reports: None HEENT Surgical History: Reports: Naso-Sinus Surgery, Tonsillectomy Cardiovascular Surgical History: Reports: None Respiratory Surgical History: Reports: None GI Surgical History: Reports: Bariatric Procedure (2013), Other (See Below) Other GI Surgeries/Procedures: gastric bypass Female Surgical History: Reports: Section, Hysterectomy Male Surgical History: Reports: None Endocrine Surgical History: Reports: None Neurological Surgical History: Reports: None Musculoskeletal Surgical History: Reports: Arthroscopic Knee, Carpal Tunnel, Other (See Below) Other Musculoskeletal Surgeries/Procedures:: ganglion cyst removal from foot, knee surgery Oncologic Surgical History: Reports: None Dermatological Surgical History: Reports: None - SUBSTANCE USE Smoking Status *Q: Current Every Day Smoker (ppd for 30 years-) Tobacco Use Within Last Twelve Months: Cigarettes Other Tobacco Use Within Last Twelve Months: yes Second Hand Smoke Exposure: Yes Days Per Week of Alcohol Use: 0 Number of Drinks Per Day: 0 Total Drinks Per Week: 0 Recreational Drug Use History: No - HOME MEDS Home Medications: Home Meds ALPRAZolam [Xanax] 0.25 mg PO BID PRN 06/28/16 [History] Cetirizine [ZyrTEC] 10 mg PO DAILY 06/28/16 [History] DULoxetine [Cymbalta] 120 mg PO BEDTIME 06/28/16 [History] Folic Acid 1 mg PO DAILY 06/28/16 [History] Multivitamin [Multivitamins] 2 cap PO DAILY 06/28/16 [History] QUEtiapine [SEROquel] 100 mg PO BEDTIME 06/28/16 [History] Albuterol [Ventolin HFA] 1 puff INH Q4H PRN 09/26/17 [History] Calcium Carbonate/Vitamin D3 [Calcium 600 + Vit D 200] 1 tab PO BID 09/26/17 [ History] Cyanocobalamin (Vitamin B-12) [Vitamin B-12] 2,000 mcg PO DAILY 09/26/17 [ History] Ferrous Sulfate [Iron] 325 mg PO DAILY 09/26/17 [History] Fluticasone Propionate [Flonase Allergy Relief] 1 spray NASBOTH DAILY 09/26/17 [ History] Olopatadine HCl [Pazeo] 1 drop EYEBOTH DAILY 09/26/17 [History] Pantoprazole Sodium [Protonix] 40 mg PO DAILY 09/26/17 [History] Pyridoxine HCl [Vitamin B-6] 100 mg PO DAILY 09/26/17 [History] cycloSPORINE [Restasis] 1 drop EYEBOTH BID 09/26/17 [History] Cholecalciferol (Vitamin D3) [Vitamin D3] 50,000 units PO DAILY 02/12/18 [ History] atorvaSTATin Calcium [Atorvastatin Calcium] 10 mg PO DAILY 02/12/18 [History] - CURRENT (IN HOUSE) MEDS Current Meds: Current Medications Lactated Ringer's (Ringers, Lactated) 1,000 mls @ 125 mls/hr IV ASDIRECTED [facility] Lidocaine/Sodium Bicarbonate (Buffered Lidocaine 1% In Ns 8.4%) 0.25 ml IDERM ONETIME PRN PRN Reason: Prior to IV Start Sodium Chloride (Saline Flush) 10 ml FLUSH ASDIRECTED PRN PRN Reason: Keep Vein Open Discontinued Medications Bupivacaine HCl/Epinephrine Bitart (Marcaine 0.5%/Epinephrine 1:200,000) Confirm Administered Dose 50 ml .ROUTE .STK-MED ONE Stop: 03/20/18 09:23 Dibucaine (Nupercainal 1% Oint) Confirm Administered Dose 28.35 gm .ROUTE .STK- MED ONE Stop: 03/20/18 09:23 Fentanyl (Sublimaze) Confirm Administered Dose 100 mcg .ROUTE .STK-MED ONE Stop: 03/20/18 08:34 Lidocaine HCl (Xylocaine-Mpf 1%) Confirm Administered Dose 4 mls @ as directed .ROUTE .STK-MED ONE Stop: 03/20/18 08:34 Lidocaine/Epinephrine (Xylocaine 1% With Epinephrine 1:100,000) Confirm Administered Dose 20 ml .ROUTE .STK-MED ONE Stop: 03/20/18 09:23 Midazolam HCl (Versed 1 Mg/Ml) Confirm Administered Dose 2 mg .ROUTE .STK-MED ONE Stop: 03/20/18 08:35 Propofol (Diprivan 20 Ml) Confirm Administered Dose 200 mg .ROUTE .STK-MED ONE Stop: 03/20/18 08:34
[2018-03-20] MEDS ORDERED: Ondansetron 4 MG/2 ML SDV IVPUSH PRN (10:29)
[2018-03-20] MEDS ORDERED: fentaNYL 100 MCG/2 ML SDV IVPUSH PRN (10:29)
--- NOTE | 2018-03-20 10:55 | PCM.OPNOTE ---
- General Post-Op/Procedure Note Date of Surgery/Procedure: 03/20/18 Operative Procedure(s): The procedure for prolapse and hemorrhoids -- PPH Findings: Grade 3 internal hemorrhoids with anal tags Pre Op Diagnosis: Grade 3 internal hemorrhoids with anal tags Post-Op Diagnosis: Same Anesthesia Technique: Local, MAC, Moderate Sedation Primary Surgeon: Mckay Colon Pathology: Strip of rectal mucosa EBL in mLs: 1 Complications: None Condition: Good Free Text/Narrative:: After adequate IV sedation and analgesia was obtained with monitoring the patient was placed in the prone jackknife position with her buttocks taped. Perianal inspection revealed the findings above. A perianal block was performed next with local analgesia. Anoscopy confirmed the presence of the internal hemorrhoids with no additional pathology seen. The guide for the PPH stapler was placed and secured with silk suture. A 2-0 Prolene pursestring suture was placed about 4 cm above the dentate line. A 33 stapler was inserted at this line and fired. The staple line had one small area of bleeding which was cauterized. Ointment and Surgicel were applied to the anal canal. There were no procedural complications.
--- NOTE | 2018-03-20 10:58 | PCM48HPAN ---
Post Anesthesia Note - EVALUATION WITHIN 48HRS OF ANESTHETIC Vital Signs in Normal Range: Yes Patient Participated in Evaluation: Yes Respiratory Function Stable: Yes Airway Patent: Yes Cardiovascular Function Stable: Yes Hydration Status Stable: Yes Pain Control Satisfactory: Yes Nausea and Vomiting Control Satisfactory: Yes Mental Status Recovered: Yes Pulse Rate: 104 SaO2: 96 (with o2) Resp Rate: 14 Blood Pressure: 122/73
[2018-03-20] MEDS ORDERED: Acetaminophen/Codeine 300-30 MG Tab PO PRN (11:27)
[2018-03-20 13:13] VITALS: BP 128/82
== END 2018-03-20 13:00 | disposition home or self-care (01) ==
LOC: JD.SDS 09:14
PROVIDERS: ATTEND Surgery
DX: K64.2 Third degree hemorrhoids (principal); K64.4 Residual hemorrhoidal skin tags; E11.9 Type 2 diabetes mellitus without complications; F41.9 Anxiety disorder, unspecified; E78.5 Hyperlipidemia, unspecified; F32.9 Major depressive disorder, single episode, unspecified; E55.9 Vitamin D deficiency, unspecified; Z86.010 Personal history of colon polyps; Z88.8 Allergy status to other drugs, medicaments and biological substances; Z79.899 Other long term (current) drug therapy
CPT/HCPCS: 46947; 94640; A9270; J2001; J2250; J3010; J7120; 00902; 88304; J2704

== ENCOUNTER 2019-03-10 20:01 | Emergency (ER) | payer MEDICARE, MEDICAID ==
[2019-03-10 20:15] VITALS: BP 152/91
[2019-03-10] MEDS ORDERED: oxyCODONE 5 MG Tab PO ONE (21:09)
--- NOTE | 2019-03-10 21:17 | EDM.PDOC ---
ED HPI GENERAL MEDICAL PROBLEM - General Chief Complaint: ENT Problem Stated Complaint: MOUTH PAIN Time Seen by Provider: 03/10/19 20:27 Source of Information: Reports: Patient, RN Notes Reviewed History Limitations: Reports: No Limitations - History of Present Illness INITIAL COMMENTS - FREE TEXT/NARRATIVE: Patient is a 59-year-old female who presents to the ED for the evaluation of dental pain. The patient states that she had 2 teeth removed last Sunday, and one removed last . She states this was done at [facility], she was given a partial at the first visit, and was told to wear this and not taken out area she states that the area became swollen and she called the doctor as a another front tooth had become loose with this as well. The dentist told her to take a partial out, and then they removed the third tooth last . She did try to follow up with her dentist today, however he was sick with the flu and was not in the office. She has an appointment tomorrow morning at 7 AM for reevaluation. The patient has been taking her hydrocodone 5/325's as prescribed by her dentist but it is not providing too much relief. The patient notes a past history of a gastric bypass, so she is unable to take NSAIDs, also she has a hypersensitivity reaction to prednisone that results in hive-like itching. She states that she feels as if her whole face is swollen, and is now having some pain up into her sinuses as well. She did go to the walk-in clinic and got a prescription for Augmentin. She has been using ice/heat pack/salt water rinses, with clove oil for little to no relief. Tooth/Teeth Pain Score (Numeric/FACES): 10 - Related Data Allergies Allergy/AdvReac Type Severity Reaction Status Date / Time celecoxib [From Celebrex] Allergy Rash Verified 03/10/19 20:15 hydroxychloroquine Allergy Cannot Verified 03/10/19 20:15 [From Plaquenil] Remember mold Allergy Cannot Verified 03/10/19 20:15 Remember prednisone Allergy Itching Verified 03/10/19 20:15 Home Meds: Home Meds ALPRAZolam [Xanax] 0.25 mg PO BID PRN 06/28/16 [History] Cetirizine [ZyrTEC] 10 mg PO DAILY 06/28/16 [History] DULoxetine [Cymbalta] 120 mg PO BEDTIME 06/28/16 [History] Folic Acid 1 mg PO DAILY 06/28/16 [History] Multivitamin [Multivitamins] 2 cap PO DAILY 06/28/16 [History] QUEtiapine [SEROquel] 100 mg PO BEDTIME 06/28/16 [History] Albuterol [Ventolin HFA] 1 puff INH Q4H PRN 09/26/17 [History] Calcium Carbonate/Vitamin D3 [Calcium 600 + Vit D 200] 1 tab PO BID 09/26/17 [ History] Cyanocobalamin (Vitamin B-12) [Vitamin B-12] 2,000 mcg PO DAILY 09/26/17 [ History] Ferrous Sulfate [Iron] 325 mg PO DAILY 09/26/17 [History] Fluticasone Propionate [Flonase Allergy Relief] 1 spray NASBOTH DAILY 09/26/17 [ History] Olopatadine HCl [Pazeo] 1 drop EYEBOTH DAILY 09/26/17 [History] Pantoprazole Sodium [Protonix] 40 mg PO DAILY 09/26/17 [History] Pyridoxine HCl [Vitamin B-6] 100 mg PO DAILY 09/26/17 [History] cycloSPORINE [Restasis] 1 drop EYEBOTH BID 09/26/17 [History] Cholecalciferol (Vitamin D3) [Vitamin D3] 50,000 units PO DAILY 02/12/18 [ History] atorvaSTATin Calcium [Atorvastatin Calcium] 10 mg PO DAILY 02/12/18 [History] Past Medical History HEENT History: Reports: Sinusitis Cardiovascular History: Reports: High Cholesterol, Hypertension Respiratory History: Reports: Asthma, Other (See Below) Other Respiratory History: acute bronchitits Gastrointestinal History: Reports: GERD, Other (See Below) Other Gastrointestinal History: RUQ pain, heartburn, liver hemangioma Genitourinary History: Reports: None, Renal Calculus 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: , Other (See Below) 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 Musculoskeletal History: Reports: Back Pain, Chronic, Osteoarthritis, Other ( See Below) Other Musculoskeletal History: left knee osteoarthritis, compression fracture, hip pain Neurological History: Reports: None, Other (See Below) Other Neuro History: back pain, compression fracture, right foot ganglion cyst, right knee paint Psychiatric History: Reports: Anxiety, Depression Endocrine/Metabolic History: Reports: Vitamin D Deficiency Hematologic History: Reports: None Immunologic History: Reports: None Oncologic (Cancer) History: Reports: None Dermatologic History: Reports: Eczema - Past Surgical History Head Surgeries/Procedures: Reports: None HEENT Surgical History: Reports: Naso-Sinus Surgery, Oral Surgery, Tonsillectomy Cardiovascular Surgical History: Reports: None Respiratory Surgical History: Reports: None GI Surgical History: Reports: Bariatric Procedure, Cholecystectomy, Other (See Below) Other GI Surgeries/Procedures: gastric bypass, hemorrhoid surgery Female Surgical History: Reports: Section, Hysterectomy Endocrine Surgical History: Reports: None Neurological Surgical History: Reports: None Musculoskeletal Surgical History: Reports: Arthroscopic Knee, Carpal Tunnel, Other (See Below) Other Musculoskeletal Surgeries/Procedures:: ganglion cyst removal from foot, knee surgery Oncologic Surgical History: Reports: None Dermatological Surgical History: Reports: None Social & Family History - Tobacco Use Smoking Status *Q: Current Every Day Smoker Years of Tobacco use: 30 Packs/Tins Daily: 1 - Caffeine Use Caffeine Use: Reports: None - Recreational Drug Use Recreational Drug Use: No ED ROS ENT - Review of Systems Review Of Systems: See Below Constitutional: Reports: No Symptoms HEENT: Reports: Dental Pain Respiratory: Reports: No Symptoms Cardiovascular: Reports: No Symptoms Endocrine: Reports: No Symptoms GI/Abdominal: Reports: No Symptoms : Reports: No Symptoms Musculoskeletal: Reports: No Symptoms Skin: Reports: No Symptoms Neurological: Reports: No Symptoms Psychiatric: Reports: No Symptoms Hematologic/Lymphatic: Reports: No Symptoms Immunologic: Reports: No Symptoms ED EXAM, ENT - Physical Exam Exam: See Below Exam Limited By: No Limitations General Appearance: Alert, WD/WN, No Apparent Distress Eye Exam: Bilateral Eye: EOMI, Normal Inspection, PERRL Ears: Normal External Exam, Normal TMs Nose: Normal Inspection Mouth/Throat: Normal Inspection, Normal Gums, Normal Oropharynx, Gum Swelling ( Her upper front gums are erythematous and irritated.), Lip Swelling (The patient 's upper right lip is mildly swollen.). No: Pharyngeal Erythema, Throat Pain, Throat Swelling, Tongue Swelling Head: Atraumatic, Normocephalic Neck: Normal Inspection Respiratory/Chest: No Respiratory Distress, Lungs Clear, Normal Breath Sounds, No Accessory Muscle Use, Chest Non-Tender Cardiovascular: Normal Peripheral Pulses, Regular Rate, Rhythm, No Murmur Extremities: Normal Inspection, Normal Capillary Refill Neurological: Alert, Oriented, Normal Cognition, No Motor/Sensory Deficits Psychiatric: Normal Affect, Normal Mood Skin: Warm, Dry, Intact, Normal Color, No Rash Course - Vital Signs Last Recorded V/S: Last Vital Signs Temp 97.4 F 03/10/19 20:12 Pulse 108 H 03/10/19 20:12 Resp 16 03/10/19 20:12 BP 152/91 H 03/10/19 20:12 Pulse Ox 96 03/10/19 20:12 - Orders/Labs/Meds Meds: Medications Discontinued Medications Generic Name Dose Route Start Last Admin Trade Name Ally PRN Reason Stop Dose Admin Oxycodone HCl 20 mg 03/10/19 21:09 Oxycodone PO 03/10/19 21:10 ONETIME ONE - Re-Assessments/Exams Free Text/Narrative Re-Assessment/Exam: 03/10/19 21:16 Patient presents to the ED for the evaluation of dental pain. She does have an appointment to see her dentist at 7 in the morning tomorrow, due to her allergy to NSAIDs and resultant hydrocodone and Tylenol use. I did provide the patient with 2 tablets of oxycodone 10 mg. She is to take 1 at bedtime tonight for pain relief, and one later in the night or early tomorrow morning for pain relief. She is to follow-up with her dentist tomorrow for further management. Departure - Departure Time of Disposition: 21:17 Disposition: Home, Self-Care 01 Condition: Fair Clinical Impression: Pain, dental - Discharge Information *PRESCRIPTION DRUG MONITORING PROGRAM REVIEWED*: No *COPY OF PRESCRIPTION DRUG MONITORING REPORT IN PATIENT GRACIE: No Instructions: Dental Extraction, Care After, [id number] Referrals: Bridgett Garza MD [Primary Care Provider] - Additional Instructions: You have been evaluated in the ED for your dental pain. You have been provided with 2 tablets of oxycodone. These are 10 mg tablets. Please take one tonight before bed, and one in the morning before your dental appointment. Please take your antibiotic as prescribed by the walk-in clinic as directed for further management. This antibiotic, Augmentin, is notorious for causing diarrhea you may want to start taking a probiotic as well. You may use hot pack/ ice packs to the affected area as tolerated in 15-20 minute intervals. You will need to follow up with your dentist at [facility] for further management tomorrow. Please return to the ED if your symptoms change or worsen.
== END 2019-03-10 21:26 | disposition home or self-care (01) ==
LOC: JD.ED 20:01
DX: K08.89 Other specified disorders of teeth and supporting structures (principal); F17.210 Nicotine dependence, cigarettes, uncomplicated; I10 Essential (primary) hypertension; E78.00 Pure hypercholesterolemia, unspecified; J45.909 Unspecified asthma, uncomplicated; F41.9 Anxiety disorder, unspecified; F32.9 Major depressive disorder, single episode, unspecified; Z79.899 Other long term (current) drug therapy; Z88.8 Allergy status to other drugs, medicaments and biological substances; Z88.1 Allergy status to other antibiotic agents
CPT/HCPCS: 99282; A9270

== ENCOUNTER 2021-09-08 13:09 | Emergency (ER) | payer MEDICARE, MEDICAID ==
[2021-09-08 13:27] VITALS: BP 135/99; PULSE 107
[2021-09-08] MEDS ORDERED: Ondansetron 4 MG/2 ML SDV IVPUSH ONE (13:35)
[2021-09-08] MEDS ORDERED: Ketorolac 30 MG/ML SDV IVPUSH ONE (13:35)
[2021-09-08] MEDS ORDERED: Sodium Chloride 0.9% 1,000 ML IV STA (13:35)
--- NOTE | 2021-09-08 14:18 | CT ---
CT abdomen and pelvis Technique: Multiple axial sections were obtained from above the dome of the diaphragm inferiorly through the pubic symphysis. Intravenous and oral contrast were not utilized. Study has been performed as a renal stone protocol. Reconstructed coronal and sagittal images were obtained. Comparison: Previous CT abdomen and pelvis study of 01/17/18 is available. Findings: Visualized lung bases show nothing acute. Low-density lesion is noted within the posterior right lobe of the liver which is stable from prior CT exam measuring about 5.1 cm. This is felt to be benign. Liver is otherwise unremarkable. Surgical clips are seen from prior cholecystectomy. Spleen size is normal. Adrenal glands show no nodule. Pancreas shows no discrete abnormality. Previous stomach surgery is noted as well as bowel surgery on the left side. Bowel aorta shows atherosclerotic calcification without aneurysm. No retroperitoneal adenopathy is seen. No mesenteric abnormalities are seen. Appendix is seen which is normal in size. No pelvic mass or adenopathy is seen. Kidneys shows a small 1-2 mm stone within the upper pole calyx. Left kidney shows a larger 1.0 cm stone within the lower pole. No ureteral dilatation is seen. No ureteral calculi are seen. Bone window settings were reviewed which show mild spondylolisthesis at L4-5 which has slightly increased in amount from prior study. This is due to degenerative apophyseal change. Disc protrusion is seen into the superior endplate of L1 which is stable. Other degenerative change is noted which is fairly stable from prior exam. Impression: 1. Numerous findings believed to be fairly stable from prior CT study. 2. Nonobstructing renal calculi within both kidneys. No ureteral dilatation or ureteral stone is seen. 3. Nothing acute is definitely appreciated on noncontrast CT study of the abdomen and pelvis. Diagnostic code #2
--- NOTE | 2021-09-08 14:22 | EDM.PDOC ---
ED HPI GENERAL MEDICAL PROBLEM - General Chief Complaint: Genitourinary Problem Stated Complaint: KIDNEY STONE Time Seen by Provider: 09/08/21 13:17 Source of Information: Reports: Patient, RN Notes Reviewed History Limitations: Reports: No Limitations - History of Present Illness INITIAL COMMENTS - FREE TEXT/NARRATIVE: Patient is a 61-year-old female presenting to the emergency department with complaints of left flank pain. She reports she has a known kidney stone and was scheduled to have surgery to have it removed with Dr. Rodriguez in [place] tomorrow, however she canceled it due to the widespread Covid. This morning, she awoke with pain. Reports she was not having any significant discomfort prior to this. She believes the stone was still in the kidney when she had an ultrasound back in April or May. Denies any nausea or vomiting. She took Tylenol earlier in the day with little to no relief. She has had no fever or chills. Left Back Pain Score (Numeric/FACES): 8 - Related Data Allergies Allergy/AdvReac Type Severity Reaction Status Date / Time celecoxib [From Celebrex] Allergy Rash Verified 09/08/21 13:29 hydroxychloroquine Allergy Cannot Verified 09/08/21 13:29 [From Plaquenil] Remember mold Allergy Cannot Verified 09/08/21 13:29 Remember prednisone Allergy Itching Verified 09/08/21 13:29 Home Meds: Home Meds ALPRAZolam [Xanax] 0.25 mg PO BID PRN 06/28/16 [History] Cetirizine [ZyrTEC] 10 mg PO DAILY 06/28/16 [History] DULoxetine [Cymbalta] 120 mg PO BEDTIME 06/28/16 [History] Folic Acid 1 mg PO DAILY 06/28/16 [History] Multivitamin [Multivitamins] 2 cap PO DAILY 06/28/16 [History] QUEtiapine [SEROquel] 100 mg PO BEDTIME 06/28/16 [History] Albuterol [Ventolin HFA] 1 puff INH Q4H PRN 09/26/17 [History] Calcium Carbonate/Vitamin D3 [Calcium 600 + Vit D 200] 1 tab PO BID 09/26/17 [History] Cyanocobalamin (Vitamin B-12) [Vitamin B-12] 2,000 mcg PO DAILY 09/26/17 [History] Ferrous Sulfate [Iron] 325 mg PO DAILY 09/26/17 [History] Fluticasone Propionate [Flonase Allergy Relief] 1 spray NASBOTH DAILY 09/26/17 [History] Olopatadine HCl [Pazeo] 1 drop EYEBOTH DAILY 09/26/17 [History] Pantoprazole Sodium [Protonix] 40 mg PO DAILY 09/26/17 [History] Pyridoxine HCl (Vitamin B6) [Vitamin B-6] 100 mg PO DAILY 09/26/17 [History] cycloSPORINE [Restasis] 1 drop EYEBOTH BID 09/26/17 [History] Cholecalciferol (Vitamin D3) [Vitamin D3] 50,000 units PO DAILY 02/12/18 [History] atorvaSTATin Calcium [Atorvastatin Calcium] 10 mg PO DAILY 02/12/18 [History] Hydrocodone/Acetaminophen [Hydrocodone-Acetamin 5-325 mg] 1 - 2 each PO Q4H PRN #20 tablet 09/08/21 [Rx] Past Medical History HEENT History: Reports: Sinusitis Cardiovascular History: Reports: High Cholesterol, Hypertension Respiratory History: Reports: Asthma, Other (See Below) Other Respiratory History: acute bronchitits Gastrointestinal History: Reports: GERD, Other (See Below) Other Gastrointestinal History: RUQ pain, heartburn, liver hemangioma Genitourinary History: Reports: None, Renal Calculus 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: , 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 (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) 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 Musculoskeletal History: Reports: Back Pain, Chronic, Osteoarthritis, Other (See Below) Other Musculoskeletal History: left knee osteoarthritis, compression fracture, hip pain Neurological History: Reports: None, Other (See Below) Other Neuro History: back pain, compression fracture, right foot ganglion cyst, right knee paint Psychiatric History: Reports: Anxiety, Depression Endocrine/Metabolic History: Reports: Vitamin D Deficiency Hematologic History: Reports: None Immunologic History: Reports: None Oncologic (Cancer) History: Reports: None Dermatologic History: Reports: Eczema - Past Surgical History Head Surgeries/Procedures: Reports: None HEENT Surgical History: Reports: Naso-Sinus Surgery, Oral Surgery, Tonsillectomy Cardiovascular Surgical History: Reports: None Respiratory Surgical History: Reports: None GI Surgical History: Reports: Bariatric Procedure, Cholecystectomy, Other (See Below) Other GI Surgeries/Procedures: gastric bypass, hemorrhoid surgery Female Surgical History: Reports: Section, Hysterectomy Endocrine Surgical History: Reports: None Neurological Surgical History: Reports: None Musculoskeletal Surgical History: Reports: Arthroscopic Knee, Carpal Tunnel, Oth er (See Below) Other Musculoskeletal Surgeries/Procedures:: ganglion cyst removal from foot, knee surgery Oncologic Surgical History: Reports: None Dermatological Surgical History: Reports: None Social & Family History - Caffeine Use Caffeine Use: Reports: Coffee - Recreational Drug Use Recreational Drug Use: No ED ROS GENERAL - Review of Systems Review Of Systems: See Below Constitutional: Reports: No Symptoms. Denies: Fever, Chills HEENT: Reports: No Symptoms Respiratory: Reports: No Symptoms Cardiovascular: Reports: No Symptoms Endocrine: Reports: No Symptoms GI/Abdominal: Reports: No Symptoms. Denies: Abdominal Pain, Nausea, Vomiting : Reports: Flank Pain. Denies: Dysuria, Hematuria Musculoskeletal: Reports: No Symptoms Skin: Reports: No Symptoms Neurological: Reports: No Symptoms Psychiatric: Reports: No Symptoms Hematologic/Lymphatic: Reports: No Symptoms Immunologic: Reports: No Symptoms ED EXAM, RENAL/ - Physical Exam Exam: See Below Exam Limited By: No Limitations General Appearance: Alert, WD/WN, No Apparent Distress Respiratory/Chest: No Respiratory Distress, Lungs Clear, Normal Breath Sounds, No Accessory Muscle Use, Chest Non-Tender Cardiovascular: Normal Peripheral Pulses, Regular Rate, Rhythm, No Edema, No Gallop, No JVD, No Murmur, No Rub GI/Abdominal: Normal Bowel Sounds, Soft, Non-Tender, No Organomegaly, No Distention, No Abnormal Bruit, No Mass Back Exam: Normal Inspection, Full Range of Motion. No: CVA Tenderness (L), CVA Tenderness (R) Neurological: Alert, Oriented, CN II-XII Intact, Normal Cognition, Normal Gait, Normal Reflexes, No Motor/Sensory Deficits Psychiatric: Normal Affect, Normal Mood Skin Exam: Warm, Dry, Intact, Normal Color, No Rash Course - Vital Signs Last Recorded V/S: Last Vital Signs Temp 97.5 F 09/08/21 13:20 Pulse 107 H 09/08/21 13:20 Resp 20 09/08/21 13:20 BP 135/99 H 09/08/21 13:20 Pulse Ox 95 09/08/21 13:20 - Orders/Labs/Meds Labs: Laboratory Tests 09/08/21 09/08/21 09/08/21 Range/Units 13:20 13:20 14:10 WBC 7.06 (3.98-10.04) K/mm3 RBC 4.52 (3.98-5.22) M/mm3 Hgb 12.4 (11.2-15.7) gm/dl Hct 39.6 (34.1-44.9) % MCV 87.6 (79.4-94.8) fl MCH 27.4 (25.6-32.2) pg MCHC 31.3 L (32.2-35.5) g/dl RDW Std Deviation 46.0 (36.4-46.3) fL Plt Count 364 (182-369) K/mm3 MPV 10.4 (9.4-12.3) fl Neut % (Auto) 69.1 (34.0-71.1) % Lymph % (Auto) 19.5 (19.3-51.7) % [place] % (Auto) 9.6 (4.7-12.5) % Eos % (Auto) 1.3 (0.7-5.8) Baso % (Auto) 0.4 (0.1-1.2) % Neut # (Auto) 4.87 (1.56-6.13) K/mm3 Lymph # (Auto) 1.38 (1.18-3.74) K/mm3 [place] # (Auto) 0.68 H (0.24-0.36) K/mm3 Eos # (Auto) 0.09 (0.04-0.36) K/mm3 Baso # (Auto) 0.03 (0.01-0.08) K/mm3 Sodium 138 (136-145) mEq/L Potassium 4.0 (3.5-5.1) mEq/L Chloride 102 (98-107) mEq/L Carbon Dioxide 29 (21-32) mEq/L Anion Gap 11.0 (5-15) BUN 7 (7-18) mg/dL Creatinine 0.7 (0.55-1.02) mg/dL Est Cr Clr Drug Dosing 68.44 mL/min Estimated GFR (MDRD) > 60 (>60) mL/min BUN/Creatinine Ratio 10.0 L (14-18) Glucose 104 H (70-99) mg/dL Calcium 8.5 (8.5-10.1) mg/dL Total Bilirubin 0.2 (0.2-1.0) mg/dL AST 23 (15-37) U/L ALT 23 (14-59) U/L Alkaline Phosphatase 94 (46-116) U/L C-Reactive Protein < 0.2 (<1.0) mg/dL Total Protein 6.6 (6.4-8.2) g/dl Albumin 3.6 (3.4-5.0) g/dl Globulin 3.0 gm/dL Albumin/Globulin Ratio 1.2 (1-2) Urine Color Yellow (Yellow) Urine Appearance Clear (Clear) Urine pH 7.0 (5.0-8.0) Ur Specific [place] 1.015 (1.005-1.030) Urine Protein Negative (Negative) Urine Glucose (UA) Negative (Negative) Urine Ketones Negative (Negative) Urine Occult Blood Negative (Negative) Urine Nitrite Negative (Negative) Urine Bilirubin Negative (Negative) Urine Urobilinogen 0.2 (0.2-1.0) Ur Leukocyte Esterase Negative (Negative) Urine RBC 0-5 (0-5) /hpf Urine WBC 0-5 (0-5) /hpf Ur Squamous Epith Cells 0-5 (0-5) /hpf Urine Bacteria Few (FEW) /hpf Urine Mucus Few (FEW) /hpf Meds: Medications Discontinued Medications Generic Name Dose Route Start Last Admin Trade Name Artemq PRN Reason Stop Dose Admin Sodium Chloride 1,000 mls @ 150 mls/hr 09/08/21 13:35 09/08/21 13:54 Normal Saline IV 09/08/21 20:14 150 mls/hr NOW STA Administration Ketorolac Tromethamine 30 mg 09/08/21 13:35 09/08/21 13:55 Ketorolac 30 Mg/Ml Sdv IVPUSH 09/08/21 13:36 30 mg ONETIME ONE Administration Ondansetron HCl 4 mg 09/08/21 13:35 09/08/21 13:55 Ondansetron 4 Mg/2 Ml Sdv IVPUSH 09/08/21 13:36 4 mg ONETIME ONE Administration - Re-Assessments/Exams Free Text/Narrative Re-Assessment/Exam: 09/08/21 14:44 Hematology is unremarkable. Kidney function is normal. WBCs and CRP are normal. Urinalysis shows no blood or infection. Call was placed to Dr. Rodriguez's office. I spoke with his PA, Rohit. He requested that I push the CT images down. They will review them and call me back. 09/08/21 14:[address] Rodriguez's office called me back. They do not recommend any additional intervention. I will write for hydrocodone with Tylenol for pain. They will contact her to reschedule the procedure. Patient is in agreement with this plan. Discharge instructions as document. Departure - Departure Time of Disposition: 14:49 Disposition: Home, Self-Care 01 Condition: Good Clinical Impression: Kidney stone - Discharge Information *PRESCRIPTION DRUG MONITORING PROGRAM REVIEWED*: Yes *COPY OF PRESCRIPTION DRUG MONITORING REPORT IN PATIENT GRACIE: No Prescriptions: Hydrocodone/Acetaminophen [Hydrocodone-Acetamin 5-325 mg] 1 - 2 each PO Q4H PRN #20 tablet PRN Reason: Pain Instructions: Kidney Stones, [id number] Referrals: Toña Theodore NP [Primary Care Provider] - Sravan Rodriguez MD [Ordering Only Provider] - Forms: ED Department Discharge Additional Instructions: Take Tylenol routinely for pain. For pain not relieved by this, you may take 1- 2 hydrocodone with Tylenol. Ensure that you are not taking more than 4000 mg from all sources in a 24-hour period. Dr. Rodriguez's office will be in contact with you to reschedule your procedure. Return to ER for any new or worsening symptoms of concern. Sepsis Event Note (ED) - Evaluation Sepsis Screening Result: No Definite Risk
== END 2021-09-08 15:15 | disposition home or self-care (01) ==
LOC: JD.ED 13:09
DX: N20.0 Calculus of kidney (principal); E78.00 Pure hypercholesterolemia, unspecified; I10 Essential (primary) hypertension; J45.909 Unspecified asthma, uncomplicated; K21.9 Gastro-esophageal reflux disease without esophagitis; M19.90 Unspecified osteoarthritis, unspecified site; Z88.1 Allergy status to other antibiotic agents; Z88.8 Allergy status to other drugs, medicaments and biological substances; Z91.048 Other nonmedicinal substance allergy status; Z79.899 Other long term (current) drug therapy
CPT/HCPCS: 36415; 74176; 80053; 81001; 85025; 86140; 96374; 96375; 99284; J1885; J2405; J7030

== ENCOUNTER 2023-03-22 06:47 | Day surgery (SDC) | payer MEDICARE, MEDICAID ==
[~2023-03-22 06:47] MED LIST changes: +Albuterol 0.083% 2.5 MG/3 ML Neb Soln NEB PRN; -Lidocaine 1% 4 ML ONE; -Midazolam 1 MG/ML 2 ML SDV ONE; -Propofol 200 MG/20 ML SDV ONE; +Scopolamine 1.5 MG Transdermal Patch TRDERM PRN; +Sodium Chloride 0.9% 10 ML Syringe FLUSH SCH; -fentaNYL 100 MCG/2 ML SDV ONE
[2023-03-22] MEDS ORDERED: Propofol 200 MG/20 ML SDV ONE ×2 (07:06→08:28)
[2023-03-22] MEDS ORDERED: fentaNYL 100 MCG/2 ML SDV ONE (07:07)
[2023-03-22] MEDS ORDERED: Ondansetron 4 MG/2 ML SDV ONE (07:27)
[2023-03-22] MEDS ORDERED: Ondansetron 4 MG/2 ML SDV IVPUSH PRN (08:15)
[2023-03-22] MEDS ORDERED: Phenylephrine 1% 10 MG/ML SDV ONE (08:18)
[2023-03-22 10:11] VITALS: BP 93/69; PULSE 74
== END 2023-03-22 09:42 | disposition home or self-care (01) ==
LOC: JD.SDS 06:47
PROVIDERS: ATTEND Surgery
DX: Z12.11 Encounter for screening for malignant neoplasm of colon (principal); K64.4 Residual hemorrhoidal skin tags; Q43.8 Other specified congenital malformations of intestine; I10 Essential (primary) hypertension; E78.00 Pure hypercholesterolemia, unspecified; J45.909 Unspecified asthma, uncomplicated; K21.9 Gastro-esophageal reflux disease without esophagitis; M06.9 Rheumatoid arthritis, unspecified; F31.9 Bipolar disorder, unspecified; F41.9 Anxiety disorder, unspecified; E55.9 Vitamin D deficiency, unspecified; D50.9 Iron deficiency anemia, unspecified; E11.9 Type 2 diabetes mellitus without complications; F17.210 Nicotine dependence, cigarettes, uncomplicated; Z98.890 Other specified postprocedural states; Z88.8 Allergy status to other drugs, medicaments and biological substances; Z88.1 Allergy status to other antibiotic agents; Z88.6 Allergy status to analgesic agent; Z79.899 Other long term (current) drug therapy; Z86.010 Personal history of colon polyps; Z98.84 Bariatric surgery status
CPT/HCPCS: 00812; A9270-GY; J2370; J2405; J2704; J3010; J7120; J7620-GY